=== PATIENT | male | born 1995 | race African-American/Black ===

== ENCOUNTER 2017-05-07 01:21 | Emergency (ER) | payer SELFPAY ==
[~2017-05-07] VITALS: Ht 185.4 cm; Wt 74.1 kg
[~2017-05-07 01:21] MED LIST: Desyrel PO; MAGNESIUM CITR296 M1 PO; NOHOMEMEDS
[2017-05-07 02:20] LABS: BASOPHIL COUNT 0.1 K/uL (0-0.1); EOSINOPHIL (%) 9.5 % (0-5); EOSINOPHIL COUNT 0.8 K/uL (0-0.3); HEMOGLOBIN 15.3 G/DL (12.5-16.6); IMMATURE GRANULOCYTE (%) 0.1 % (0.0-0.7); LYMPHOCYTE (%) 35.1 % (15-42); LYMPHOCYTE COUNT 2.8 K/uL (1.0-2.8); MCH 30.2 PG (29.0-34.0); MCHC 35.6 G/DL (30.0-36.0); MCV 84.8 FL (86-99); MONOCYTE (%) 8.3 % (3-12); MONOCYTE COUNT 0.7 K/uL (0-0.8); NEUTROPHIL COUNT 3.7 K/uL (1.8-6.4); PLATELET COUNT 244 K/uL (156-360); RBC DIS.WIDTH-CV 13.2 % (11.8-14.6); RBC DIS.WIDTH-SD 40.7 % (39-53); RED BLOOD COUNT 5.07 M/uL (4.00-5.50); WHITE BLOOD COUNT 8.1 K/uL (4.1-10.2)
[2017-05-07 02:30] LABS: PTT 28.8 SEC (25-37)
[2017-05-07 02:31] LABS: ALBUMIN 4.2 g/dL (3.2-4.8)
[2017-05-07 02:32] LABS: CHLORIDE 108 mEq/L (99-109); POTASSIUM 4.1 mEq/L (3.7-5.4); SODIUM 140 mEq/L (136-147)
[2017-05-07 02:34] LABS: GLUCOSE 75 mg/dL (70-99); TOTAL PROTEIN 6.2 g/dL (6.4-8.3)
[2017-05-07 02:36] LABS: TOTAL BILIRUBIN 0.7 mg/dL (0.0-1.0)
[2017-05-07 02:38] LABS: ALKALINE PHOSPHATASE 68 IU/L (3-129); CREATININE 1.1 mg/dL (0.6-1.3); GFR ESTIMATE (CALCULATED) > 59 mL/min/ (58.99-99999)
[2017-05-07 02:39] LABS: AST (GOT) 27 IU/L (2-34)
[2017-05-07 02:40] LABS: UREA NITROGEN (BUN) 18 mg/dL (9-23)
[2017-05-07 02:41] LABS: ALT (GPT) 22 IU/L (3-49); SALICYLATE < 5.0 MG/DL (15-30)
[2017-05-07 02:42] LABS: ACETAMINOPHEN (TYLENOL) < 10 mcg/mL (10-30)
[2017-05-07 03:28] LABS: AMPHETAMINE PRESUMPTIVE POSITIVE (500 ng/mL); BARBITURATES NEGATIVE (200 ng/mL); BENZODIAZEPINES NEGATIVE (150 ng/mL); COCAINE NEGATIVE (150 ng/mL); METHADONE NEGATIVE (200 ng/mL); METHAMPHETAMINE NEGATIVE (500 ng/mL); OPIATES (MORPHINE) NEGATIVE (100 ng/mL); OXYCODONE NEGATIVE (100 ng/mL); PHENCYCLIDINE NEGATIVE (25 ng/mL); THC CANNABINOIDS PRESUMPTIVE POSITIVE (50 ng/mL); TRICYCLIC ANTIDEPRESSANTS NEGATIVE (300 ng/mL)
[2017-05-07 03:29] LABS: BUPRENORPHINE NEGATIVE (10 ng/mL); PROPOXYPHENE NEGATIVE (300 ng/mL)
[2017-05-07 04:57] VITALS: BP 107/55
== END 2017-05-07 05:06 | disposition home or self-care (01) ==
LOC: EME 01:21
PROVIDERS: Emergency Medicine
DX: F32.9 Major depressive disorder, single episode, unspecified (principal); T39.1X2A Poisoning by 4-Aminophenol derivatives, intentional self-harm, initial encounter; F17.200 Nicotine dependence, unspecified, uncomplicated
CPT/HCPCS: 80053; 84999; 85025; 85610; 85730; 90839; 93005; 99281; 99285; G0480

== ENCOUNTER 2017-08-28 09:13 | Emergency (ER) | payer SELFPAY ==
[~2017-08-28] VITALS: Ht 185.4 cm; Wt 74.5 kg
[2017-08-28 09:44] LABS: BASOPHIL (%) 0.9 % (0-1); BASOPHIL COUNT 0.1 K/uL (0-0.1); EOSINOPHIL (%) 13.3 % (0-5); EOSINOPHIL COUNT 0.9 K/uL (0-0.3); HEMATOCRIT 40.4 % (38.0-50.0); HEMOGLOBIN 14.4 G/DL (12.5-16.6); IMMATURE GRANULOCYTE (%) 0.2 % (0.0-0.7); LYMPHOCYTE (%) 26.4 % (15-42); LYMPHOCYTE COUNT 1.8 K/uL (1.0-2.8); MCH 30.3 PG (29.0-34.0); MCHC 35.6 G/DL (30.0-36.0); MCV 84.9 FL (86-99); MONOCYTE (%) 8.6 % (3-12); MONOCYTE COUNT 0.6 K/uL (0-0.8); NEUTROPHIL (%) 50.6 % (45-76); NEUTROPHIL COUNT 3.4 K/uL (1.8-6.4); PLATELET COUNT 216 K/uL (156-360); RBC DIS.WIDTH-CV 13.2 % (11.8-14.6); RED BLOOD COUNT 4.76 M/uL (4.00-5.50); WHITE BLOOD COUNT 6.6 K/uL (4.1-10.2)
[2017-08-28 09:53] LABS: CHLORIDE 107 mEq/L (99-109); POTASSIUM 3.4 mEq/L (3.7-5.4); SODIUM 141 mEq/L (136-147)
[2017-08-28 09:55] LABS: GLUCOSE 89 mg/dL (70-99); TOTAL PROTEIN 5.9 g/dL (6.4-8.3)
[2017-08-28 09:57] LABS: TOTAL BILIRUBIN 0.5 mg/dL (0.0-1.0)
[2017-08-28 09:58] LABS: SERUM ETHYL ALCOHOL < 10 mg/dL
[2017-08-28 09:59] LABS: CREATININE 1.1 mg/dL (0.6-1.3); GFR ESTIMATE (CALCULATED) > 59 mL/min/ (58.99-99999)
[2017-08-28 10:00] LABS: ALKALINE PHOSPHATASE 65 IU/L (3-129); AST (GOT) 31 IU/L (2-34); DIRECT BILIRUBIN 0.2 mg/dL (0.0-0.3)
[2017-08-28 10:01] LABS: UREA NITROGEN (BUN) 12 mg/dL (9-23)
[2017-08-28 10:02] LABS: SALICYLATE < 5.0 MG/DL (15-30)
[2017-08-28 10:03] LABS: ACETAMINOPHEN (TYLENOL) < 10 mcg/mL (10-30); ALT (GPT) 22 IU/L (3-49)
[2017-08-28 10:54] LABS: APPEARANCE SL.HAZY ((CLEAR)); BILIRUBIN NEGATIVE; BLOOD NEGATIVE; COLOR YELLOW ((YELLOW)); GLUCOSE (STRIP) NEGATIVE; KETONES 20; LEUKOCYTES NEGATIVE; NITRITE NEGATIVE; PROTEIN (STRIP) 100; SPECIFIC GRAVITY 1.025 (1.000-1.030)
[2017-08-28 11:22] LABS: RED BLOOD CELLS NONE SEEN /HPF (0-5)
[2017-08-28 11:23] LABS: EPITHELIAL CELLS RARE /HPF; MUCUS 4+ /LPF; WHITE BLOOD CELLS NONE SEEN /HPF (0-5)
[2017-08-28 11:24] LABS: BACTERIA NONE SEEN /HPF
[2017-08-28 11:25] LABS: CALCIUM OXALATE CRYSTALS 2+ /HPF
[2017-08-28 11:31] LABS: AMPHETAMINE PRESUMPTIVE POSITIVE (500 ng/mL); BARBITURATES NEGATIVE (200 ng/mL); BENZODIAZEPINES NEGATIVE (150 ng/mL); BUPRENORPHINE NEGATIVE (10 ng/mL); COCAINE NEGATIVE (150 ng/mL); METHADONE NEGATIVE (200 ng/mL); METHAMPHETAMINE NEGATIVE (500 ng/mL); OPIATES (MORPHINE) NEGATIVE (100 ng/mL); OXYCODONE NEGATIVE (100 ng/mL); PHENCYCLIDINE NEGATIVE (25 ng/mL); PROPOXYPHENE NEGATIVE (300 ng/mL); THC CANNABINOIDS PRESUMPTIVE POSITIVE (50 ng/mL); TRICYCLIC ANTIDEPRESSANTS NEGATIVE (300 ng/mL)
[2017-08-28 13:36] VITALS: BP 120/67
== END 2017-08-28 13:23 | disposition home or self-care (01) ==
LOC: EME 09:13
PROVIDERS: Emergency Medicine
DX: T43.621A Poisoning by amphetamines, accidental (unintentional), initial encounter (principal); F41.9 Anxiety disorder, unspecified; F32.9 Major depressive disorder, single episode, unspecified; R07.9 Chest pain, unspecified; R06.02 Shortness of breath; R40.0 Somnolence; F90.9 Attention-deficit hyperactivity disorder, unspecified type; F17.200 Nicotine dependence, unspecified, uncomplicated
CPT/HCPCS: 80048; 80076; 81003; 84999; 85025; 90839; 93005; 99281; 99285; G0480